=== PATIENT | female | born 1975 | race Caucasian/White ===

== ENCOUNTER 2017-01-04 17:59 | Emergency (ER) | payer OTHER ==
[~2017-01-04] VITALS: Ht 162.5 cm; Wt 83.9 kg
[~2017-01-04 17:59] MED LIST: ANAPROX DS550 MG PO; MIDRIN (DURADR1 CAP PO; PHENERGAN25 MG RC; PROZAC10 MG PO; ZOLOFT100 MG PO
[2017-01-04 18:15] VITALS: BP 122/76
[2017-01-04] MEDS ORDERED: CYCLOBENZAPRINE5 M3 PO (22:55)
[2017-01-04] MEDS ORDERED: NORCO 5-325 TA1 EACH PO (22:55)
[2017-01-04] MEDS ORDERED: MEDROL DOSEPAK4 MG PO (22:55)
== END 2017-01-04 23:39 | disposition home or self-care (01) ==
LOC: ED 17:59
DX: M54.16 Radiculopathy, lumbar region (principal); F17.200 Nicotine dependence, unspecified, uncomplicated; Z98.51 Tubal ligation status; Z98.890 Other specified postprocedural states; Z79.899 Other long term (current) drug therapy

== ENCOUNTER 2017-02-06 14:00 | Emergency (ER) | payer OTHER ==
[~2017-02-06] VITALS: Ht 162.5 cm; Wt 81.6 kg
[~2017-02-06 14:00] MED LIST changes: -CYCLOBENZAPRINE10 MG PO; -NAPROSYN500 MG PO
[2017-02-06 14:56] VITALS: BP 123/92
[2017-02-06] MEDS ORDERED: CYCLOBENZAPRINE10 MG PO (16:11)
[2017-02-06] MEDS ORDERED: NAPROSYN500 MG PO (16:11)
== END 2017-02-06 16:21 | disposition home or self-care (01) ==
LOC: ED 14:00
DX: M54.16 Radiculopathy, lumbar region (principal); F17.200 Nicotine dependence, unspecified, uncomplicated; Z98.51 Tubal ligation status; Z98.890 Other specified postprocedural states; Z79.899 Other long term (current) drug therapy

== ENCOUNTER → 2017-02-06 | Outpatient (CLI) | payer OTHER ==
[~2017-02-06] MED LIST changes: +CYCLOBENZAPRINE10 MG PO; +CYCLOBENZAPRINE5 M3 PO; +MEDROL DOSEPAK4 MG PO; +NAPROSYN500 MG PO; +NORCO 5-325 TA1 EACH PO
[2017-02-06 14:32] LABS: HEMATOCRIT 44.3 % (37.0-47.0); HEMOGLOBIN 15.1 g/dl (12.0-16.0); MEAN CELL VOLUME 93.9 fl (81.0-99.0); MEAN CORPUSCULAR HGB CONC 34.1 g/dl (33.0-37.0); MEAN PLATELET VOLUME 9.5 fl (9.6-12.3); RED BLOOD COUNT 4.72 10*6/uL (4.10-5.10); RED CELL DISTRI WIDTH 12.6 % (0-14.5); WHITE BLOOD COUNT 8.8 10*3/uL (4.8-10.8)
[2017-02-06 14:45] LABS: ALBUMIN 3.5 gm/dl (3.1-4.5); ALKALINE PHOSPHATASE 70 U/L (45-117); BUN 8 mg/dl (7-24); CHLORIDE 104 mmol/L (98-107); CHOLESTEROL 265 mg/dL (<200); CREATININE 0.86 mg/dL (0.55-1.02); HDL CHOLESTEROL 60 mg/dl (40-60); LDL CHOLESTEROL 175 mg/dL (9-159); POTASSIUM 3.2 mmol/L (3.5-5.1); SGOT/AST 11 IU/L (3-35); SGPT/ALT 20 U/L (12-78); SODIUM 140 mmol/L (136-145); TOTAL PROTEIN 7.2 gm/dL (6.4-8.2); TRIGLYCERIDES 150 mg/dl (<150); VLDL CHOLESTEROL 30 mg/dL (6-40)
== END | disposition home or self-care (01) ==
LOC: LAB 12:57
PROVIDERS: Family Medicine
DX: M47.896 Other spondylosis, lumbar region (principal); E78.00 Pure hypercholesterolemia, unspecified; F41.1 Generalized anxiety disorder; E74.00 Glycogen storage disease, unspecified; M47.892 Other spondylosis, cervical region

== ENCOUNTER → 2017-07-25 | Outpatient (CLI) | payer OTHER ==
[~2017-07-25] MED LIST changes: +CYCLOBENZAPRINE10 MG PO; +NAPROSYN500 MG PO
[2017-07-25 11:25] LABS: HEMATOCRIT 42.9 % (37.0-47.0); HEMOGLOBIN 14.6 g/dl (12.0-16.0); MEAN CELL VOLUME 95.1 fl (81.0-99.0); MEAN CORPUSCULAR HGB 32.4 pg (27.0-31.0); MEAN PLATELET VOLUME 9.6 fl (9.6-12.3); RED BLOOD COUNT 4.51 10*6/uL (4.10-5.10); RED CELL DISTRI WIDTH 12.3 % (0-14.5); WHITE BLOOD COUNT 7.6 10*3/uL (4.8-10.8)
[2017-07-25 11:56] LABS: ALBUMIN 3.6 gm/dl (3.1-4.5); ALKALINE PHOSPHATASE 71 U/L (45-117); BUN 12 mg/dl (7-24); CHLORIDE 105 mmol/L (98-107); CHOLESTEROL 210 mg/dL (<200); CREATININE 0.75 mg/dL (0.55-1.02); HDL CHOLESTEROL 46 mg/dl (40-60); LDL CHOLESTEROL 134 mg/dL (9-159); POTASSIUM 4.4 mmol/L (3.5-5.1); SGOT/AST 31 IU/L (3-35); SGPT/ALT 38 U/L (12-78); SODIUM 138 mmol/L (136-145); TOTAL PROTEIN 7.1 gm/dL (6.4-8.2); TRIGLYCERIDES 151 mg/dl (<150); VLDL CHOLESTEROL 30 mg/dL (6-40)
== END | disposition home or self-care (01) ==
LOC: LAB 09:40
PROVIDERS: Family Medicine
DX: M47.896 Other spondylosis, lumbar region (principal); F41.1 Generalized anxiety disorder; E74.09 Other glycogen storage disease; R53.83 Other fatigue; E78.00 Pure hypercholesterolemia, unspecified; E55.9 Vitamin D deficiency, unspecified

== ENCOUNTER 2017-10-09 10:45 | Emergency (ER) | payer OTHER ==
[~2017-10-09] VITALS: Ht 162.5 cm; Wt 79.4 kg
[2017-10-09 10:45] VITALS: BP 115/75
[2017-10-09] MEDS ORDERED: CYCLOBENZAPRINE10 MG PO (12:10)
[2017-10-09] MEDS ORDERED: NAPROSYN500 MG PO (12:10)
== END 2017-10-09 12:20 | disposition home or self-care (01) ==
LOC: ED 10:45
DX: S39.012A Strain of muscle, fascia and tendon of lower back, initial encounter (principal); S30.0XXA Contusion of lower back and pelvis, initial encounter; F17.200 Nicotine dependence, unspecified, uncomplicated; Z79.899 Other long term (current) drug therapy; W18.30XA Fall on same level, unspecified, initial encounter; Y93.89 Activity, other specified; Y92.89 Other specified places as the place of occurrence of the external cause; Y99.8 Other external cause status

== ENCOUNTER 2019-01-29 17:44 | Emergency (ER) | payer OTHER ==
[~2019-01-29] VITALS: Ht 162.5 cm; Wt 81.6 kg
[2019-01-29 17:45] VITALS: BP 159/92
[2019-01-29 18:59] LABS: BASO % 0.3 % (0.0-1.0); EOS # 0.1 10*3/uL (0.0-0.4); EOS % 1.5 % (1.0-4.0); HEMATOCRIT 44.9 % (37.0-47.0); HEMOGLOBIN 15.3 g/dl (12.0-16.0); LYMPH # 1.7 10*3/uL (1.3-4.4); LYMPH % 18.7 % (27.0-41.0); MEAN CELL VOLUME 95.7 fl (81.0-99.0); MEAN CORPUSCULAR HGB 32.6 pg (27.0-31.0); MEAN CORPUSCULAR HGB CONC 34.1 g/dl (33.0-37.0); MEAN PLATELET VOLUME 9.3 fl (9.6-12.3); MONO # 0.7 10*3/uL (0.1-1.0); MONO % 7.9 % (3.0-9.0); NEUT # 6.5 10*3/uL (2.3-7.9); NEUT % 71.3 % (47.0-73.0); PLATELET COUNT AUTOMATED 306 10*3/uL (130-400); RED BLOOD COUNT 4.69 10*6/uL (4.10-5.10); RED CELL DISTRI WIDTH 12.3 % (0-14.5); WHITE BLOOD COUNT 9.1 10*3/uL (4.8-10.8)
[2019-01-29 19:09] LABS: BILIRUBIN 1+ (NEGATIVE); BLOOD NEGATIVE (NEGATIVE); CLARITY CLEAR (CLEAR); COLOR YELLOW (YELLOW); GLUCOSE NEGATIVE (NEGATIVE); KETONE 3+ (NEGATIVE); LEUKO ESTERASE NEGATIVE (NEGATIVE); NITRITE NEGATIVE (NEGATIVE); SPECIFIC GRAVITY <= 1.005 (1.005-1.030); UROBILINOGEN 0.2 E.U./dl (0.2-1.0)
[2019-01-29 19:17] LABS: ALBUMIN 3.3 gm/dl (3.1-4.5); ALKALINE PHOSPHATASE 64 U/L (45-117); BUN 6 mg/dl (7-24); CHLORIDE 100 mmol/L (98-107); CREATININE 0.68 mg/dL (0.55-1.02); LIPASE 92 U/L (73-393); POTASSIUM 3.4 mmol/L (3.5-5.1); SGOT/AST 9 IU/L (3-35); SGPT/ALT 12 U/L (12-78); SODIUM 135 mmol/L (136-145); TOTAL PROTEIN 6.8 gm/dL (6.4-8.2)
[2019-01-29 19:23] LABS: BACTERIA TRACE
[2019-01-29] MEDS ORDERED: AUGMENTIN 875875 MG PO (20:06)
[2019-01-29] MEDS ORDERED: DICYCLOMINE HYD20 MG PO (20:06)
== END 2019-01-29 20:30 | disposition home or self-care (01) ==
LOC: ED 17:44
PROVIDERS: Physician Assistant
DX: R19.7 Diarrhea, unspecified (principal); R10.13 Epigastric pain; R11.10 Vomiting, unspecified; K21.9 Gastro-esophageal reflux disease without esophagitis; F17.200 Nicotine dependence, unspecified, uncomplicated; Z79.899 Other long term (current) drug therapy

== ENCOUNTER 2019-02-18 19:56 | Inpatient (IN) | payer OTHER ==
[~2019-02-18] VITALS: Ht 162.6 cm; Wt 95.7 kg
[2019-02-18 19:56] VITALS: BP 132/98
[~2019-02-18 19:56] MED LIST changes: +AUGMENTIN 875875 MG PO; +DICYCLOMINE HYD20 MG PO
[2019-02-18 20:57] LABS: HEMOGLOBIN 15.2 g/dl (12.0-16.0); MEAN CORPUSCULAR HGB 32.1 pg (27.0-31.0); MEAN CORPUSCULAR HGB CONC 34.5 g/dl (33.0-37.0); MEAN PLATELET VOLUME 8.8 fl (9.6-12.3); PLATELET COUNT AUTOMATED 318 10*3/uL (130-400); RED BLOOD COUNT 4.73 10*6/uL (4.10-5.10); RED CELL DISTRI WIDTH 11.9 % (0-14.5); WHITE BLOOD COUNT 10.3 10*3/uL (4.8-10.8)
[2019-02-18 21:10] LABS: ALKALINE PHOSPHATASE 80 U/L (45-117); BUN 4 mg/dl (7-24); CHLORIDE 91 mmol/L (98-107); CREATININE 0.74 mg/dL (0.55-1.02); POTASSIUM 3.6 mmol/L (3.5-5.1); SGOT/AST 16 IU/L (3-35); SGPT/ALT 24 U/L (12-78); SODIUM 125 mmol/L (136-145); TOTAL PROTEIN 7.8 gm/dL (6.4-8.2)
[2019-02-18 21:17] LABS: TOTAL CELLS COUNTED 100 #CELLS; VACUOLATION OF NEUTROPHILS SLIGHT
[2019-02-18 21:18] LABS: PLATELET SUFFICIENCY NORMAL (NORMAL)
[2019-02-18 21:19] LABS: BILIRUBIN NEGATIVE (NEGATIVE); BLOOD 1+ (NEGATIVE); CLARITY CLEAR (CLEAR); COLOR YELLOW (YELLOW); GLUCOSE NEGATIVE (NEGATIVE); KETONE NEGATIVE (NEGATIVE); LEUKO ESTERASE NEGATIVE (NEGATIVE); NITRITE NEGATIVE (NEGATIVE); SPECIFIC GRAVITY <= 1.005 (1.005-1.030); UROBILINOGEN 0.2 E.U./dl (0.2-1.0)
[2019-02-18 21:36] LABS: WBC 0-2 wbc/hpf (0-5)
[2019-02-18 21:37] LABS: BACTERIA 1+
--- NOTE | 2019-02-18 23:38 | NUR ---
CRITICAL LAB LACTIC ACID 2.5.
[2019-02-19 01:00] VITALS: BP 140/76
--- NOTE | 2019-02-19 01:00 | NUR ---
Time: 99 A 43 year old FEMALE admitted to 4E under services of DR. SUBHASH CUBA,RODOLFO. Pt. arrived via wheel chair from ER. Chief complaint: HYPONATREMIA. STEPHANIE DE JESUS
[2019-02-19 01:17] VITALS: BP 140/76
[2019-02-19] MEDS ORDERED: PAROXETINE HCL40 MG PO (01:33)
[2019-02-19] MEDS ORDERED: RISPERIDONE2 M2 PO (01:33)
--- NOTE | 2019-02-19 01:34 | NUR ---
ADMISSION ORDERS GIVEN FROM DT. CULLEN. PLEASE SEE ORDER HX.
[2019-02-19 07:12] LABS: BUN 6 mg/dl (7-24); CHLORIDE 102 mmol/L (98-107); CREATININE 0.66 mg/dL (0.55-1.02); POTASSIUM 3.6 mmol/L (3.5-5.1); SODIUM 134 mmol/L (136-145)
[2019-02-19] MEDS ORDERED: XANAX1 MG PO (07:38)
[2019-02-19] MEDS ORDERED: AMBIEN10 M1 PO (07:38)
[2019-02-19 08:00] VITALS: BP 126/65
[2019-02-19] MEDS ORDERED: CEFUROXIME AXE250 MG PO (08:38)
--- NOTE | 2019-02-19 09:12 | NUR ---
NIKKY PARKER NOTIFIED OF CONSULT.
--- NOTE | 2019-02-19 09:24 | NUR ---
PATIENT C/O FEELING "JITTERY/ANXIOUS". MEDICATED WITH XANAX PER PRN ORDER. WILL CONTINUE TO MONITOR.
--- NOTE | 2019-02-19 11:10 | NUR ---
met with client per consult of dr campos, this client is already being treated for her anxiety at [facility], she said she feelsl better now, i asked her about the alcohol abuse and if she wanted some treatment options for that and she declined said she has learned her lesson, discussde with her nurse, client has no needs at this time, she can go home.
--- NOTE | 2019-02-19 11:28 | NUR ---
PATIENT DISCHARGED TO HOME. ALL PERSONAL BELONGINGS SENT WITH PATIENT. IV DISCONTINUED. DISCHARGE INSTRUCTIONS GIVEN AND REVIEWED WITH PATIENT. PATIENT INFORMED TO FOLLOW UP WITH WITHIN ONE WEEK.
== END 2019-02-19 11:28 | disposition home or self-care (01) | DRG 812 ==
LOC: ED 19:56 → EDHOLD 23:49 → 4E 02-19 00:19
PROVIDERS: Emergency Medicine; ADMIT Internal Medicine
DX: T42.6X1A Poisoning by other antiepileptic and sedative-hypnotic drugs, accidental (unintentional), initial encounter (principal); E87.1 Hypo-osmolality and hyponatremia; F10.10 Alcohol abuse, uncomplicated; F41.1 Generalized anxiety disorder; F43.10 Post-traumatic stress disorder, unspecified; N39.0 Urinary tract infection, site not specified; F17.210 Nicotine dependence, cigarettes, uncomplicated; E87.2 Acidosis; Y92.89 Other specified places as the place of occurrence of the external cause; Z98.51 Tubal ligation status; Z82.49 Family history of ischemic heart disease and other diseases of the circulatory system; Z80.8 Family history of malignant neoplasm of other organs or systems; Z79.899 Other long term (current) drug therapy

== ENCOUNTER → 2019-03-01 | Day surgery (SDC) | payer OTHER ==
[~2019-03-01] VITALS: Ht 162.5 cm; Wt 90.7 kg
[~2019-03-01] MED LIST changes: +AMBIEN10 M1 PO; +CEFUROXIME AXE250 MG PO; +PAROXETINE HCL40 MG PO; +RISPERIDONE2 M2 PO; +XANAX1 MG PO
[2019-03-01 13:50] VITALS: BP 127/88
[2019-03-01 15:14] VITALS: BP 117/77
[2019-03-01 15:29] VITALS: BP 120/67
[2019-03-01 15:38] VITALS: BP 120/72
== END | disposition home or self-care (01) ==
LOC: SDC 02-25 11:45
DX: D12.5 Benign neoplasm of sigmoid colon (principal); F41.9 Anxiety disorder, unspecified; F32.9 Major depressive disorder, single episode, unspecified; F17.210 Nicotine dependence, cigarettes, uncomplicated; E66.9 Obesity, unspecified; Z68.34 Body mass index [BMI] 34.0-34.9, adult; Z98.51 Tubal ligation status; Z98.890 Other specified postprocedural states; Z79.899 Other long term (current) drug therapy; Z82.49 Family history of ischemic heart disease and other diseases of the circulatory system; Z80.8 Family history of malignant neoplasm of other organs or systems

== ENCOUNTER 2019-08-25 15:55 | Emergency (ER) | payer OTHER ==
[2019-08-25 16:52] LABS: BASO % 0.4 % (0.0-1.0); EOS % 0.3 % (1.0-4.0); HEMATOCRIT 46.9 % (37.0-47.0); HEMOGLOBIN 16.2 g/dl (12.0-16.0); LYMPH # 1.3 10*3/uL (1.3-4.4); LYMPH % 16.5 % (27.0-41.0); MEAN CELL VOLUME 90.2 fl (81.0-99.0); MEAN CORPUSCULAR HGB 31.2 pg (27.0-31.0); MEAN CORPUSCULAR HGB CONC 34.5 g/dl (33.0-37.0); MEAN PLATELET VOLUME 8.9 fl (9.6-12.3); MONO # 0.4 10*3/uL (0.1-1.0); MONO % 4.4 % (3.0-9.0); NEUT # 6.2 10*3/uL (2.3-7.9); NEUT % 78.3 % (47.0-73.0); PLATELET COUNT AUTOMATED 319 10*3/uL (130-400); RED CELL DISTRI WIDTH 11.6 % (0-14.5)
[2019-08-25 17:23] LABS: ALBUMIN 3.7 gm/dl (3.1-4.5); ALKALINE PHOSPHATASE 87 U/L (45-117); BUN 8 mg/dl (7-24); CHLORIDE 105 mmol/L (98-107); CREATININE 0.81 mg/dL (0.55-1.02); POTASSIUM 3.7 mmol/L (3.5-5.1); SGOT/AST 15 IU/L (3-35); SGPT/ALT 29 U/L (12-78); SODIUM 135 mmol/L (136-145); TOTAL PROTEIN 7.6 gm/dL (6.4-8.2)
[2019-08-25 17:29] LABS: TROPONIN I < 0.015 ng/ml (<0.045)
[2019-08-25 17:53] VITALS: BP 136/80
[2019-08-25] MEDS ORDERED: MECLIZINE HCL25 M2 PO (19:15)
== END 2019-08-25 19:30 | disposition home or self-care (01) ==
LOC: ED 15:55
PROVIDERS: Nurse Practitioner Family
DX: R42 Dizziness and giddiness (principal); F41.9 Anxiety disorder, unspecified; R51 Headache; R07.89 Other chest pain; F17.200 Nicotine dependence, unspecified, uncomplicated; Z79.899 Other long term (current) drug therapy

== ENCOUNTER 2019-10-21 10:32 | Emergency (ER) | payer OTHER ==
[~2019-10-21] VITALS: Ht 162.5 cm; Wt 90.7 kg
[~2019-10-21 10:32] MED LIST changes: +MECLIZINE HCL25 M2 PO
[2019-10-21 10:38] VITALS: BP 119/72
[2019-10-21] MEDS ORDERED: NAPROSYN500 MG PO (13:18)
[2019-10-21] MEDS ORDERED: MEDROL DOSEPAK4 MG PO (13:18)
[2019-10-21] MEDS ORDERED: METHOCARBAMOL500 M1 PO (13:18)
== END 2019-10-21 13:19 | disposition home or self-care (01) ==
LOC: ED 10:32
DX: S16.1XXA Strain of muscle, fascia and tendon at neck level, initial encounter (principal); F41.9 Anxiety disorder, unspecified; Z79.899 Other long term (current) drug therapy; X58.XXXA Exposure to other specified factors, initial encounter; Y93.89 Activity, other specified; Y92.89 Other specified places as the place of occurrence of the external cause; Y99.8 Other external cause status

== ENCOUNTER → 2019-11-26 | Outpatient (CLI) | payer OTHER ==
[~2019-11-26] MED LIST changes: +METHOCARBAMOL500 M1 PO
== END | disposition home or self-care (01) ==
LOC: MAMMO 12:55
DX: N64.52 Nipple discharge (principal)

== ENCOUNTER → 2019-12-06 | Outpatient (CLI) | payer OTHER | END | disposition home or self-care (01) | LOC: MRI 13:00 | DX: N64.52 Nipple discharge (principal); R79.89 Other specified abnormal findings of blood chemistry ==

== ENCOUNTER → 2020-02-26 | Outpatient (CLI) | payer OTHER | END | disposition home or self-care (01) | LOC: LAB 08:00 | PROVIDERS: ATTEND Internal Medicine Endocrinology, Diabetes & Metabolism | DX: D35.2 Benign neoplasm of pituitary gland (principal) ==

== ENCOUNTER → 2020-02-27 | Outpatient (CLI) | payer OTHER | END | disposition home or self-care (01) | LOC: LAB 08:00 | PROVIDERS: ATTEND Internal Medicine Endocrinology, Diabetes & Metabolism | DX: D35.2 Benign neoplasm of pituitary gland (principal) ==

== ENCOUNTER → 2020-02-28 | Outpatient (CLI) | payer OTHER ==
[2020-02-28 11:39] LABS: ALBUMIN 3.6 gm/dl (3.1-4.5); BUN 9 mg/dl (7-24); CHLORIDE 103 mmol/L (98-107); CHOLESTEROL 220 mg/dL (<200); CREATININE 0.77 mg/dL (0.55-1.02); POTASSIUM 4.1 mmol/L (3.5-5.1); SGOT/AST 9 IU/L (3-35); SGPT/ALT 18 U/L (12-78); SODIUM 135 mmol/L (136-145); T3 UPTAKE 36 % (31-39); THYROXINE (T4) TOTAL 6.4 ug/dl (4.8-13.9); TOTAL PROTEIN 7.2 gm/dL (6.4-8.2); TRIGLYCERIDES 102 mg/dl (<150); VLDL CHOLESTEROL 20 mg/dL (6-40)
[2020-02-28 11:45] LABS: ALKALINE PHOSPHATASE 82 U/L (45-117); FREE T4 0.88 ng/dl (0.76-1.46); HDL CHOLESTEROL 57 mg/dl (40-60); LDL CHOLESTEROL 143 mg/dL (9-159); THYROID STIM HORMONE (HS) 0.766 uIU/ml (0.358-4.75)
[2020-02-29 08:11] LABS: LUTEINIZING HORMONE 30.3 mIU/mL (.); PROLACTIN 24.5 ng/mL (4.8-23.3)
[2020-03-01 22:05] LABS: HUMAN GROWTH HORMONE 0.2 ng/mL (0.0-10.0)
== END | disposition home or self-care (01) ==
LOC: LAB 10:33
PROVIDERS: ATTEND Internal Medicine Endocrinology, Diabetes & Metabolism
DX: D35.2 Benign neoplasm of pituitary gland (principal)

== ENCOUNTER 2020-03-11 14:24 | Emergency (ER) | payer OTHER ==
[~2020-03-11] VITALS: Ht 162.5 cm; Wt 90.7 kg
[2020-03-11 14:29] VITALS: BP 141/90
[2020-03-11 15:06] LABS: BILIRUBIN Negative (Negative); BLOOD 2+ (Negative); CLARITY Cloudy (Clear); COLOR Yellow (Yellow); GLUCOSE Negative (Negative); KETONE Negative (Negative); LEUKO ESTERASE Trace (Negative); NITRITE Negative (Negative); SPECIFIC GRAVITY <= 1.005 (1.001-1.030); UROBILINOGEN 0.2 E.U./dl (0.0-1.0)
[2020-03-11 15:23] LABS: BACTERIA TRACE; RBC 0-2 rbc/hpf (0-2); WBC 0-2 wbc/hpf (0-5)
[2020-03-11] MEDS ORDERED: ROBAXIN-750750 MG PO ×2 (17:26)
[2020-03-11] MEDS ORDERED: PREDNISONE20 M1 PO ×2 (17:26)
[2020-03-19] MEDS ORDERED: WELLBUTRIN SR100 MG PO (13:45)
[2020-03-24] MEDS ORDERED: Motrin,Rufen800 MG PO (08:42)
== END 2020-03-11 17:32 | disposition home or self-care (01) ==
LOC: ED 14:24
PROVIDERS: Physician Assistant
DX: M54.41 Lumbago with sciatica, right side (principal); Z79.899 Other long term (current) drug therapy

== ENCOUNTER → 2020-03-19 | Outpatient (CLI) | payer OTHER ==
[~2020-03-19] MED LIST changes: +Motrin,Rufen800 MG PO; +PREDNISONE20 M1 PO; +ROBAXIN-750750 MG PO; +WELLBUTRIN SR100 MG PO
== END | disposition home or self-care (01) ==
LOC: COVID19 00:19 → LAB 00:19 → COVID19 13:30
PROVIDERS: ATTEND Obstetrics & Gynecology
DX: Z01.812 Encounter for preprocedural laboratory examination (principal); Z20.828 Contact with and (suspected) exposure to other viral communicable diseases

== ENCOUNTER → 2020-03-24 | Day surgery (SDC) | payer OTHER ==
[2020-03-19 13:39] VITALS: BP 148/78
[~2020-03-24] VITALS: Ht 162.5 cm; Wt 90.7 kg
[2020-03-24 06:45] VITALS: BP 133/74
[2020-03-24 08:26] VITALS: BP 113/73
[2020-03-24 08:41] VITALS: BP 121/79
[2020-03-24 08:56] VITALS: BP 118/72
== END ==
LOC: SDC 03-19 14:00
PROVIDERS: ATTEND Obstetrics & Gynecology
DX: N93.9 Abnormal uterine and vaginal bleeding, unspecified (principal); R10.2 Pelvic and perineal pain; G89.29 Other chronic pain; N88.2 Stricture and stenosis of cervix uteri; F31.9 Bipolar disorder, unspecified; F43.10 Post-traumatic stress disorder, unspecified; E78.00 Pure hypercholesterolemia, unspecified; F41.9 Anxiety disorder, unspecified; F17.210 Nicotine dependence, cigarettes, uncomplicated; Z79.899 Other long term (current) drug therapy

== ENCOUNTER 2020-08-27 12:15 | Observation (INO) | payer OTHER ==
[~2020-08-27] VITALS: Ht 162.5 cm; Wt 105.7 kg
[2020-08-27 12:25] VITALS: BP 124/82
[2020-08-27 12:59] VITALS: BP 132/75
[2020-08-27 13:15] LABS: BASO % 0.5 % (0.0-1.0); EOS # 0.1 10*3/uL (0.0-0.4); HEMATOCRIT 43.5 % (37.0-47.0); LYMPH % 24.6 % (27.0-41.0); MEAN CELL VOLUME 91.2 fl (81.0-99.0); MEAN CORPUSCULAR HGB 30.8 pg (27.0-31.0); MEAN CORPUSCULAR HGB CONC 33.8 g/dl (33.0-37.0); MEAN PLATELET VOLUME 8.8 fl (9.6-12.3); MONO # 0.4 10*3/uL (0.1-1.0); MONO % 5.1 % (3.0-9.0); NEUT # 5.6 10*3/uL (2.3-7.9); NEUT % 68.3 % (47.0-73.0); PLATELET COUNT AUTOMATED 380 10*3/uL (130-400); RED BLOOD COUNT 4.77 10*6/uL (4.10-5.10); RED CELL DISTRI WIDTH 13.3 % (0-14.5); WHITE BLOOD COUNT 8.2 10*3/uL (4.8-10.8)
[2020-08-27 13:26] LABS: ACT PARTIAL THROMBO TIME 25.9 SECONDS (20.0-32.1); INTERNATIONAL NORM RATIO 0.9 (2.0-3.5)
[2020-08-27 13:31] LABS: ALBUMIN 3.3 gm/dl (3.1-4.5); ALKALINE PHOSPHATASE 109 U/L (45-117); BUN 8 mg/dl (7-24); CHLORIDE 103 mmol/L (98-107); CREATININE 0.75 mg/dL (0.55-1.02); LIPASE 168 U/L (73-393); POTASSIUM 3.8 mmol/L (3.5-5.1); SGOT/AST 12 IU/L (3-35); SGPT/ALT 28 U/L (12-78); SODIUM 137 mmol/L (136-145); TOTAL PROTEIN 7.1 gm/dL (6.4-8.2); TROPONIN I < 0.015 ng/ml (<0.045)
[2020-08-27 13:33] LABS: BETA-HCG, QUANT < 1.0 mIU/mL (1-3)
[2020-08-27 17:00] VITALS: BP 122/74
[2020-08-27] MEDS ORDERED: PAXIL40 M1 PO (17:22)
[2020-08-27] MEDS ORDERED: VRAYLAR1.5 MG PO (17:22)
[2020-08-27] MEDS ORDERED: KLONOPIN0.5 MG PO (17:23)
[2020-08-27 20:00] VITALS: BP 120/64
[2020-08-28] VITALS: BP 110/56
[2020-08-28 08:00] VITALS: BP 106/56
== END 2020-08-28 15:59 | disposition home or self-care (01) ==
LOC: ED 12:15 → 4E 14:56 → EDHOLD 14:56 → 4E 16:06
PROVIDERS: Emergency Medicine; ADMIT Internal Medicine; ATTEND Internal Medicine
DX: R07.89 Other chest pain (principal); F41.1 Generalized anxiety disorder; F32.9 Major depressive disorder, single episode, unspecified; I25.10 Atherosclerotic heart disease of native coronary artery without angina pectoris; M19.90 Unspecified osteoarthritis, unspecified site; E66.01 Morbid (severe) obesity due to excess calories; Z68.41 Body mass index [BMI] 40.0-44.9, adult

== ENCOUNTER → 2020-10-05 | Outpatient (CLI) | payer OTHER ==
[~2020-10-05] MED LIST changes: +KLONOPIN0.5 MG PO; +PAXIL40 M1 PO; +VRAYLAR1.5 MG PO
[2020-10-05 12:19] LABS: MEAN CELL VOLUME 91.9 fl (81.0-99.0); MEAN CORPUSCULAR HGB 30.6 pg (27.0-31.0); MEAN CORPUSCULAR HGB CONC 33.3 g/dl (33.0-37.0); MEAN PLATELET VOLUME 8.7 fl (9.6-12.3); RED BLOOD COUNT 4.57 10*6/uL (4.10-5.10); RED CELL DISTRI WIDTH 12.9 % (0-14.5); WHITE BLOOD COUNT 6.7 10*3/uL (4.8-10.8)
[2020-10-05 13:00] LABS: ALBUMIN 3.1 gm/dl (3.1-4.5); BUN 8 mg/dl (7-24); CHLORIDE 107 mmol/L (98-107); POTASSIUM 3.9 mmol/L (3.5-5.1); SGOT/AST 16 IU/L (3-35); SGPT/ALT 26 U/L (12-78); SODIUM 138 mmol/L (136-145); TOTAL PROTEIN 7.1 gm/dL (6.4-8.2)
[2020-10-05 13:09] LABS: ALKALINE PHOSPHATASE 97 U/L (45-117); THYROID STIM HORMONE (HS) 0.556 uIU/ml (0.358-4.75)
[2020-10-06 04:06] LABS: PROLACTIN 12.6 ng/mL (4.8-23.3)
[2020-10-08 11:07] LABS: TESTOSTERONE FREE, (DIRECT) 1.6 pg/mL (0.0-4.2)
== END | disposition home or self-care (01) ==
LOC: LAB 11:56
PROVIDERS: ATTEND Family Medicine
DX: G62.9 Polyneuropathy, unspecified (principal); E66.9 Obesity, unspecified; M19.90 Unspecified osteoarthritis, unspecified site; F41.1 Generalized anxiety disorder; E74.00 Glycogen storage disease, unspecified

== ENCOUNTER → 2020-10-07 | Outpatient (CLI) | payer OTHER | END | disposition home or self-care (01) | LOC: MRI 09-30 09:00 | PROVIDERS: ATTEND Internal Medicine Endocrinology, Diabetes & Metabolism | DX: D35.2 Benign neoplasm of pituitary gland (principal) ==

== ENCOUNTER → 2020-12-28 | Outpatient (CLI) | payer OTHER ==
[2020-12-28 14:03] LABS: HEMATOCRIT 44.6 % (37.0-47.0); MEAN CORPUSCULAR HGB 30.8 pg (27.0-31.0); MEAN CORPUSCULAR HGB CONC 33.9 g/dl (33.0-37.0); MEAN PLATELET VOLUME 9.1 fl (9.6-12.3); RED BLOOD COUNT 4.9 10*6/uL (4.10-5.10); RED CELL DISTRI WIDTH 12.2 % (0-14.5); WHITE BLOOD COUNT 6.9 10*3/uL (4.8-10.8)
[2020-12-28 14:12] LABS: ALBUMIN 3.9 gm/dl (3.1-4.5); ALKALINE PHOSPHATASE 97 U/L (45-117); BUN 8 mg/dl (7-24); CHLORIDE 104 mmol/L (98-107); CHOLESTEROL 230 mg/dL (<200); CREATININE 0.66 mg/dL (0.55-1.02); LDL CHOLESTEROL 153 mg/dL (9-159); POTASSIUM 4.1 mmol/L (3.5-5.1); SGOT/AST 15 IU/L (3-35); SGPT/ALT 42 U/L (12-78); SODIUM 135 mmol/L (136-145); TOTAL PROTEIN 7.5 gm/dL (6.4-8.2); TRIGLYCERIDES 142 mg/dl (<150)
[2020-12-28 16:08] LABS: VITAMIN D, 25-HYDROXY 29.7 ng/mL (30-100)
== END | disposition home or self-care (01) ==
LOC: LAB 13:30
PROVIDERS: ATTEND Family Medicine
DX: E78.5 Hyperlipidemia, unspecified (principal); E78.00 Pure hypercholesterolemia, unspecified; E55.9 Vitamin D deficiency, unspecified; R51.9 Headache, unspecified; E23.6 Other disorders of pituitary gland; G62.9 Polyneuropathy, unspecified

== ENCOUNTER 2021-01-29 21:10 | Emergency (ER) | payer OTHER ==
[2021-01-29 21:35] LABS: BILIRUBIN Negative (Negative); BLOOD Negative (Negative); CLARITY Clear (Clear); COLOR Yellow (Yellow); GLUCOSE Negative (Negative); KETONE Negative (Negative); LEUKO ESTERASE Negative (Negative); NITRITE Negative (Negative); SPECIFIC GRAVITY <= 1.005 (1.001-1.030); UROBILINOGEN 0.2 E.U./dl (0.0-1.0)
[2021-01-29 21:45] LABS: BACTERIA TRACE; RBC 0-2 rbc/hpf (0-2); URINE AMPHETAMINES < 1000 (1000ng/ml); URINE BARBITURATES < 200 (200ng/ml); URINE BENZODIAZEPINES < 200 (200ng/ml); URINE CANNABINOIDS (THC) < 50 (50ng/ml); URINE COCAINE < 300 (300ng/ml); URINE METHADONE < 300 (300ng/ml); URINE OPIATES < 300 (300ng/ml); WBC 0-2 wbc/hpf (0-5)
[2021-01-29 21:48] LABS: URINE PHENCYCLIDINE < 25 (25ng/ml)
[2021-01-29 22:01] LABS: BASO % 0.5 % (0.0-1.0); EOS # 0.1 10*3/uL (0.0-0.4); EOS % 1.6 % (1.0-4.0); HEMATOCRIT 43.2 % (37.0-47.0); LYMPH # 1.8 10*3/uL (1.3-4.4); LYMPH % 32.1 % (27.0-41.0); MEAN CELL VOLUME 90.2 fl (81.0-99.0); MEAN CORPUSCULAR HGB 29.9 pg (27.0-31.0); MEAN CORPUSCULAR HGB CONC 33.1 g/dl (33.0-37.0); MEAN PLATELET VOLUME 8.8 fl (9.6-12.3); MONO # 0.3 10*3/uL (0.1-1.0); MONO % 5.9 % (3.0-9.0); NEUT # 3.2 10*3/uL (2.3-7.9); NEUT % 58.3 % (47.0-73.0); PLATELET COUNT AUTOMATED 362 10*3/uL (130-400); RED BLOOD COUNT 4.79 10*6/uL (4.10-5.10); RED CELL DISTRI WIDTH 12.1 % (0-14.5); WHITE BLOOD COUNT 5.6 10*3/uL (4.8-10.8)
[2021-01-29 22:19] LABS: ALBUMIN 3.2 gm/dl (3.1-4.5); ALKALINE PHOSPHATASE 93 U/L (45-117); BUN 8 mg/dl (7-24); CHLORIDE 103 mmol/L (98-107); CREATININE 0.67 mg/dL (0.55-1.02); POTASSIUM 4.1 mmol/L (3.5-5.1); SGOT/AST 19 IU/L (3-35); SGPT/ALT 33 U/L (12-78); SODIUM 140 mmol/L (136-145)
[2021-01-29 22:27] LABS: THYROID STIM HORMONE (HS) 0.342 uIU/ml (0.358-4.75)
[2021-01-29 22:54] LABS: ACETAMINOPHEN (TYLENOL) < 5.0 ug/ml (10-30)
[2021-01-30 06:53] VITALS: BP 114/74
== END 2021-01-30 14:04 | disposition home or self-care (01) ==
LOC: ED 21:10
PROVIDERS: Emergency Medicine
DX: F10.920 Alcohol use, unspecified with intoxication, uncomplicated (principal); F43.21 Adjustment disorder with depressed mood; Z98.51 Tubal ligation status; Z98.890 Other specified postprocedural states; Y90.9 Presence of alcohol in blood, level not specified

== ENCOUNTER 2021-02-07 14:15 | Emergency (ER) | payer OTHER ==
[~2021-02-07] VITALS: Ht 162.5 cm; Wt 90.7 kg
[2021-02-07 15:42] LABS: BILIRUBIN Negative (Negative); BLOOD Negative (Negative); CLARITY Clear (Clear); COLOR Yellow (Yellow); GLUCOSE Negative (Negative); KETONE Negative (Negative); LEUKO ESTERASE Negative (Negative); NITRITE Negative (Negative); SPECIFIC GRAVITY <= 1.005 (1.001-1.030); UROBILINOGEN 0.2 E.U./dl (0.0-1.0)
[2021-02-07 15:48] LABS: BACTERIA 2+; RBC 0-2 rbc/hpf (0-2); WBC 0-2 wbc/hpf (0-5)
[2021-02-07 15:49] LABS: URINE AMPHETAMINES < 1000 (1000ng/ml); URINE BARBITURATES < 200 (200ng/ml); URINE BENZODIAZEPINES < 200 (200ng/ml); URINE CANNABINOIDS (THC) < 50 (50ng/ml); URINE COCAINE < 300 (300ng/ml); URINE METHADONE < 300 (300ng/ml); URINE OPIATES < 300 (300ng/ml)
[2021-02-07 15:50] LABS: URINE PHENCYCLIDINE < 25 (25ng/ml)
[2021-02-07 15:58] LABS: BASO % 0.5 % (0.0-1.0); EOS # 0.1 10*3/uL (0.0-0.4); EOS % 0.6 % (1.0-4.0); HEMATOCRIT 44.4 % (37.0-47.0); LYMPH % 25.4 % (27.0-41.0); MEAN CELL VOLUME 89.9 fl (81.0-99.0); MEAN CORPUSCULAR HGB 30.6 pg (27.0-31.0); MEAN PLATELET VOLUME 8.6 fl (9.6-12.3); MONO # 0.4 10*3/uL (0.1-1.0); MONO % 4.9 % (3.0-9.0); NEUT # 5.3 10*3/uL (2.3-7.9); NEUT % 68.3 % (47.0-73.0); PLATELET COUNT AUTOMATED 352 10*3/uL (130-400); RED BLOOD COUNT 4.94 10*6/uL (4.10-5.10); RED CELL DISTRI WIDTH 12.2 % (0-14.5); WHITE BLOOD COUNT 7.8 10*3/uL (4.8-10.8)
[2021-02-07 16:12] LABS: ALBUMIN 3.6 gm/dl (3.1-4.5); ALKALINE PHOSPHATASE 106 U/L (45-117); BUN 6 mg/dl (7-24); CHLORIDE 102 mmol/L (98-107); CREATININE 0.72 mg/dL (0.55-1.02); POTASSIUM 3.8 mmol/L (3.5-5.1); SGOT/AST 8 IU/L (3-35); SGPT/ALT 25 U/L (12-78); SODIUM 135 mmol/L (136-145); TOTAL PROTEIN 7.6 gm/dL (6.4-8.2)
[2021-02-07 16:13] LABS: ACETAMINOPHEN (TYLENOL) < 5.0 ug/ml (10-30)
[2021-02-08 06:05] VITALS: BP 141/82
[2021-02-18] MEDS ORDERED: COLACE100 MG PO (11:10)
[2021-02-18] MEDS ORDERED: ZOFRAN4 MG PO (11:10)
[2021-02-18] MEDS ORDERED: PERCOCET 5-3251 EACH PO (11:10)
== END 2021-02-08 13:24 ==
LOC: ED 14:15
PROVIDERS: Physician Assistant
DX: R45.851 Suicidal ideations (principal); Z20.822 Contact with and (suspected) exposure to COVID-19; F43.10 Post-traumatic stress disorder, unspecified; F41.9 Anxiety disorder, unspecified; F31.9 Bipolar disorder, unspecified; Z79.899 Other long term (current) drug therapy; Z98.890 Other specified postprocedural states

== ENCOUNTER → 2021-02-18 | Day surgery (SDC) | payer OTHER ==
[2021-02-15 14:24] VITALS: BP 125/86
[~2021-02-18] VITALS: Ht 162.5 cm; Wt 93.0 kg
[~2021-02-18] MED LIST changes: +COLACE100 MG PO; +PERCOCET 5-3251 EACH PO; +ZOFRAN4 MG PO
[2021-02-18 08:19] VITALS: BP 128/80
[2021-02-18 11:11] VITALS: BP 125/79
[2021-02-18 11:25] VITALS: BP 118/69
[2021-02-18 11:40] VITALS: BP 127/71
[2021-02-18 11:55] VITALS: BP 122/69
[2021-02-18 12:10] VITALS: BP 116/61
== END | disposition home or self-care (01) ==
LOC: SDC 02-15 13:15
PROVIDERS: ATTEND Surgery
DX: L05.01 Pilonidal cyst with abscess (principal); F41.9 Anxiety disorder, unspecified; F31.9 Bipolar disorder, unspecified; F43.10 Post-traumatic stress disorder, unspecified; Z79.899 Other long term (current) drug therapy; Z20.822 Contact with and (suspected) exposure to COVID-19; Z98.890 Other specified postprocedural states

== ENCOUNTER 2021-02-28 08:21 | Emergency (ER) | payer OTHER ==
[~2021-02-28] VITALS: Ht 162.5 cm; Wt 90.7 kg
[2021-02-28 08:38] VITALS: BP 140/95
[2021-02-28] MEDS ORDERED: SEPTDS PO (09:27)
== END 2021-02-28 09:48 | disposition home or self-care (01) ==
LOC: ED 08:21
DX: L76.34 Postprocedural seroma of skin and subcutaneous tissue following other procedure (principal)

== ENCOUNTER → 2021-04-26 | Outpatient (CLI) | payer OTHER ==
[~2021-04-26] MED LIST changes: +SEPTDS PO
== END | disposition home or self-care (01) ==
LOC: ORTHO 00:19
PROVIDERS: ATTEND Orthopaedic Surgery
DX: D17.21 Benign lipomatous neoplasm of skin and subcutaneous tissue of right arm (principal); Q85.8 Other phakomatoses, not elsewhere classified; M79.641 Pain in right hand

== ENCOUNTER → 2021-05-07 | Outpatient (CLI) | payer OTHER | END | disposition home or self-care (01) | LOC: US 05-04 14:00 | PROVIDERS: ATTEND Orthopaedic Surgery | DX: M67.841 Other specified disorders of synovium, right hand (principal); M79.641 Pain in right hand ==

== ENCOUNTER → 2021-06-22 | Day surgery (SDC) | payer OTHER ==
[2021-06-18 13:39] VITALS: BP 147/93
[2021-06-18 15:44] LABS: BUN 12 mg/dl (7-24); CHLORIDE 98 mmol/L (98-107); CREATININE 0.59 mg/dL (0.55-1.02); POTASSIUM 3.6 mmol/L (3.5-5.1); SODIUM 133 mmol/L (136-145)
[~2021-06-22] VITALS: Ht 167.6 cm; Wt 104.3 kg
[~2021-06-22] MED LIST changes: +REMERON30 M1 PO; +TRILEPTAL150 MG PO
[2021-06-22 07:00] VITALS: BP 117/77
[2021-06-22 08:00] VITALS: BP 112/64
[2021-06-22 08:15] VITALS: BP 112/60
[2021-06-22 08:31] VITALS: BP 114/70
[2021-06-22 08:35] VITALS: BP 114/64
== END | disposition home or self-care (01) ==
LOC: SDC 05-28 11:00
PROVIDERS: ATTEND Orthopaedic Surgery
DX: M65.841 Other synovitis and tenosynovitis, right hand (principal); F41.9 Anxiety disorder, unspecified; F32.9 Major depressive disorder, single episode, unspecified; Z20.822 Contact with and (suspected) exposure to COVID-19; F17.210 Nicotine dependence, cigarettes, uncomplicated; Z79.899 Other long term (current) drug therapy

== ENCOUNTER → 2021-08-16 | Outpatient (CLI) | payer OTHER ==
[2021-08-16 16:18] LABS: HEMATOCRIT 45.3 % (37.0-47.0); MEAN CELL VOLUME 90.2 fl (81.0-99.0); MEAN CORPUSCULAR HGB 31.5 pg (27.0-31.0); MEAN CORPUSCULAR HGB CONC 34.9 g/dl (33.0-37.0); RED BLOOD COUNT 5.02 10*6/uL (4.10-5.10); RED CELL DISTRI WIDTH 12.3 % (0-14.5)
[2021-08-16 16:42] LABS: BUN 7 mg/dl (7-24); CHLORIDE 107 mmol/L (98-107); CHOLESTEROL 274 mg/dL (<200); CREATININE 0.69 mg/dL (0.55-1.02); POTASSIUM 3.7 mmol/L (3.5-5.1); SGOT/AST 31 IU/L (3-35); SGPT/ALT 65 U/L (12-78); SODIUM 141 mmol/L (136-145); TOTAL PROTEIN 7.8 gm/dL (6.4-8.2); TRIGLYCERIDES 429 mg/dl (<150)
[2021-08-16 16:47] LABS: ALKALINE PHOSPHATASE 125 U/L (45-117); FREE T4 0.66 ng/dl (0.76-1.46); THYROID STIM HORMONE (HS) 0.828 uIU/ml (0.358-4.75)
[2021-08-17 08:08] LABS: RHEUMATOID FACTOR 11.3 IU/mL (<14.0)
[2021-08-17 12:05] LABS: VITAMIN D, 25-HYDROXY 21.3 ng/mL (30-100)
== END | disposition home or self-care (01) ==
LOC: LAB 15:58
PROVIDERS: ATTEND Family Medicine
DX: D48.5 Neoplasm of uncertain behavior of skin (principal); M26.629 Arthralgia of temporomandibular joint, unspecified side; M25.50 Pain in unspecified joint; M79.10 Myalgia, unspecified site; R53.83 Other fatigue

== ENCOUNTER 2021-09-08 13:49 | Emergency (ER) | payer OTHER ==
[~2021-09-08] VITALS: Wt 104.3 kg
[~2021-09-08 13:49] MED LIST changes: -AUGMENTIN 875-875 MG PO; -IBUPROFEN600 MG PO
[2021-09-08 13:53] VITALS: BP 141/84
[2021-09-08] MEDS ORDERED: IBUPROFEN600 MG PO (15:04)
[2021-09-08] MEDS ORDERED: AUGMENTIN 875-875 MG PO (15:04)
== END 2021-09-08 15:16 | disposition home or self-care (01) ==
LOC: ED 13:49
DX: L05.91 Pilonidal cyst without abscess (principal)

== ENCOUNTER → 2021-09-08 | Outpatient (CLI) | payer OTHER ==
[~2021-09-08] MED LIST changes: +AUGMENTIN 875-875 MG PO; +IBUPROFEN600 MG PO
== END | disposition home or self-care (01) ==
LOC: RAD 10:35
PROVIDERS: ATTEND Family Medicine
DX: M25.531 Pain in right wrist (principal)

== ENCOUNTER → 2021-10-06 | Outpatient (CLI) | payer OTHER ==
[~2021-10-06] MED LIST changes: +AUGMENTIN 875-875 MG PO; +IBUPROFEN600 MG PO
== END | disposition home or self-care (01) ==
LOC: MRI 10:00
PROVIDERS: ATTEND Family Medicine
DX: M25.531 Pain in right wrist (principal); L72.0 Epidermal cyst

== ENCOUNTER → 2021-11-11 | Outpatient (CLI) | payer OTHER ==
[2021-11-11 12:48] LABS: ALKALINE PHOSPHATASE 116 U/L (45-117); BUN 7 mg/dl (7-24); CHLORIDE 106 mmol/L (98-107); CHOLESTEROL 252 mg/dL (<200); CREATININE 0.74 mg/dL (0.55-1.02); POTASSIUM 4.1 mmol/L (3.5-5.1); SGOT/AST 22 IU/L (3-35); SGPT/ALT 45 U/L (12-78); SODIUM 141 mmol/L (136-145); TRIGLYCERIDES 475 mg/dl (<150)
== END | disposition home or self-care (01) ==
LOC: LAB 12:09
PROVIDERS: ATTEND Family Medicine
DX: E78.00 Pure hypercholesterolemia, unspecified (principal)

== ENCOUNTER → 2022-02-02 | Outpatient (CLI) | payer OTHER ==
[2022-02-02 12:56] LABS: HEMATOCRIT 45.6 % (37.0-47.0); MEAN CELL VOLUME 90.7 fl (81.0-99.0); MEAN CORPUSCULAR HGB 30.8 pg (27.0-31.0); MEAN PLATELET VOLUME 9.3 fl (9.6-12.3); RED BLOOD COUNT 5.03 10*6/uL (4.10-5.10); RED CELL DISTRI WIDTH 12.5 % (0-14.5); WHITE BLOOD COUNT 6.9 10*3/uL (4.8-10.8)
[2022-02-02 13:14] LABS: BUN 5 mg/dl (7-24); CHLORIDE 109 mmol/L (98-107); CHOLESTEROL 234 mg/dL (<200); CREATININE 0.77 mg/dL (0.55-1.02); POTASSIUM 4.1 mmol/L (3.5-5.1); SGOT/AST 11 IU/L (3-35); SGPT/ALT 28 U/L (12-78); SODIUM 142 mmol/L (136-145); TOTAL PROTEIN 7.4 gm/dL (6.4-8.2); TRIGLYCERIDES 180 mg/dl (<150)
[2022-02-02 13:21] LABS: ALKALINE PHOSPHATASE 97 U/L (45-117); FREE T4 0.91 ng/dl (0.76-1.46); THYROID STIM HORMONE (HS) 0.676 uIU/ml (0.358-4.75)
[2022-02-02 13:23] LABS: LDL CHOLESTEROL 143 mg/dL (9-159)
== END | disposition home or self-care (01) ==
LOC: LAB 12:01
PROVIDERS: ATTEND Family Medicine
DX: F41.1 Generalized anxiety disorder (principal); E03.9 Hypothyroidism, unspecified; E74.00 Glycogen storage disease, unspecified

== ENCOUNTER 2022-02-15 13:41 | Emergency (ER) | payer OTHER ==
[~2022-02-15] VITALS: Ht 162.5 cm; Wt 99.8 kg
[2022-02-15 13:49] VITALS: BP 135/75
[2022-02-15] MEDS ORDERED: CYCLOBENZAPRINE5 M3 PO (15:54)
== END 2022-02-15 16:04 | disposition home or self-care (01) ==
LOC: ED 13:41
DX: M54.50 Low back pain, unspecified (principal); W01.0XXA Fall on same level from slipping, tripping and stumbling without subsequent striking against object, initial encounter; Y93.01 Activity, walking, marching and hiking; Y92.89 Other specified places as the place of occurrence of the external cause; Y99.9 Unspecified external cause status

== ENCOUNTER 2022-03-29 15:52 | Emergency (ER) | payer OTHER ==
[~2022-03-29] VITALS: Ht 162.5 cm; Wt 99.8 kg
[2022-03-29 16:00] VITALS: BP 143/98
[2022-03-29 16:51] LABS: BASO % 0.4 % (0.0-1.0); EOS % 0.4 % (1.0-4.0); HEMATOCRIT 43.5 % (37.0-47.0); LYMPH # 1.9 10*3/uL (1.3-4.4); LYMPH % 22.9 % (27.0-41.0); MEAN CORPUSCULAR HGB 31.5 pg (27.0-31.0); MEAN CORPUSCULAR HGB CONC 35.4 g/dl (33.0-37.0); MEAN PLATELET VOLUME 8.7 fl (9.6-12.3); MONO # 0.5 10*3/uL (0.1-1.0); MONO % 5.6 % (3.0-9.0); NEUT # 5.9 10*3/uL (2.3-7.9); NEUT % 70.5 % (47.0-73.0); PLATELET COUNT AUTOMATED 369 10*3/uL (130-400); RED BLOOD COUNT 4.89 10*6/uL (4.10-5.10); RED CELL DISTRI WIDTH 11.9 % (0-14.5); WHITE BLOOD COUNT 8.4 10*3/uL (4.8-10.8)
[2022-03-29 17:10] LABS: ALKALINE PHOSPHATASE 98 U/L (45-117); BUN 4 mg/dl (7-24); CHLORIDE 101 mmol/L (98-107); CREATININE 0.61 mg/dL (0.55-1.02); LIPASE 118 U/L (73-393); POTASSIUM 3.7 mmol/L (3.5-5.1); SGPT/ALT 32 U/L (12-78); SODIUM 134 mmol/L (136-145); TOTAL PROTEIN 7.7 gm/dL (6.4-8.2)
== END 2022-03-29 19:41 | disposition home or self-care (01) ==
LOC: ED 15:52
PROVIDERS: Physician Assistant
DX: R11.2 Nausea with vomiting, unspecified (principal); R10.13 Epigastric pain; Z79.899 Other long term (current) drug therapy; Z98.51 Tubal ligation status; Z98.890 Other specified postprocedural states

== ENCOUNTER → 2022-04-12 | Outpatient (CLI) | payer OTHER | END | disposition home or self-care (01) | LOC: US 00:20 | PROVIDERS: ATTEND Family Medicine | DX: R10.11 Right upper quadrant pain (principal); R11.0 Nausea ==

== ENCOUNTER → 2022-04-21 | Outpatient (CLI) | payer OTHER | END | disposition home or self-care (01) | LOC: NM 00:21 | PROVIDERS: ATTEND Family Medicine | DX: R10.811 Right upper quadrant abdominal tenderness (principal) ==

== ENCOUNTER → 2022-06-02 | Outpatient (CLI) | payer OTHER ==
[2022-06-02 12:43] LABS: HEMATOCRIT 43.5 % (37.0-47.0); MEAN CELL VOLUME 91.6 fl (81.0-99.0); MEAN CORPUSCULAR HGB 30.5 pg (27.0-31.0); MEAN CORPUSCULAR HGB CONC 33.3 g/dl (33.0-37.0); MEAN PLATELET VOLUME 8.7 fl (9.6-12.3); RED BLOOD COUNT 4.75 10*6/uL (4.10-5.10); RED CELL DISTRI WIDTH 12.6 % (0-14.5); WHITE BLOOD COUNT 8.4 10*3/uL (4.8-10.8)
[2022-06-02 13:01] LABS: ALKALINE PHOSPHATASE 94 U/L (46-116); BUN 7 mg/dl (9-23); CHLORIDE 99 mmol/L (98-107); FREE T4 1.27 ng/dl (0.89-1.76); POTASSIUM 4.2 mmol/L (3.4-5.1); SGPT/ALT 18 U/L (10-49); THYROID STIM HORMONE (HS) 0.916 uIU/ml (0.550-4.780); TOTAL PROTEIN 7.3 gm/dL (6.0-8.0)
== END | disposition home or self-care (01) ==
LOC: LAB 12:04
PROVIDERS: ATTEND Family Medicine
DX: Z13.220 Encounter for screening for lipoid disorders (principal); D36.7 Benign neoplasm of other specified sites; E03.9 Hypothyroidism, unspecified; E22.1 Hyperprolactinemia

== ENCOUNTER → 2022-06-08 | Outpatient (CLI) | payer OTHER | END | disposition home or self-care (01) | LOC: MRI 01:28 | PROVIDERS: ATTEND Family Medicine | DX: S02.31XA Fracture of orbital floor, right side, initial encounter for closed fracture (principal); G93.89 Other specified disorders of brain; I67.9 Cerebrovascular disease, unspecified; I67.82 Cerebral ischemia; D35.2 Benign neoplasm of pituitary gland; H53.9 Unspecified visual disturbance; G44.221 Chronic tension-type headache, intractable; X58.XXXA Exposure to other specified factors, initial encounter; Y93.89 Activity, other specified; Y92.89 Other specified places as the place of occurrence of the external cause; Y99.8 Other external cause status ==

== ENCOUNTER 2022-06-23 11:21 | Emergency (ER) | payer OTHER ==
[~2022-06-23] VITALS: Ht 162.5 cm; Wt 98.4 kg
[~2022-06-23 11:21] MED LIST changes: +LEVOTHYROXINE50 MCG PO; +LORAZEPAM1 MG PO; +METHOCARBAMOL750 M1 PO; +OXCARBAZEPINE150 MG PO; +OXCARBAZEPINE300 M1 PO; +TRINTELLIX20 MG PO
[2022-06-23 11:26] VITALS: BP 163/89
[2022-06-23 11:47] LABS: BASO # 0.1 10*3/uL (0.0-0.1); BASO % 0.6 % (0.0-1.0); EOS # 0.1 10*3/uL (0.0-0.4); EOS % 0.7 % (1.0-4.0); HEMATOCRIT 46.3 % (37.0-47.0); LYMPH # 1.7 10*3/uL (1.3-4.4); LYMPH % 19.1 % (27.0-41.0); MEAN CELL VOLUME 91.5 fl (81.0-99.0); MEAN CORPUSCULAR HGB CONC 33.9 g/dl (33.0-37.0); MEAN PLATELET VOLUME 8.7 fl (9.6-12.3); MONO # 0.3 10*3/uL (0.1-1.0); MONO % 3.8 % (3.0-9.0); NEUT # 6.8 10*3/uL (2.3-7.9); NEUT % 75.5 % (47.0-73.0); PLATELET COUNT AUTOMATED 473 10*3/uL (130-400); RED BLOOD COUNT 5.06 10*6/uL (4.10-5.10); RED CELL DISTRI WIDTH 12.5 % (0-14.5)
[2022-06-23 12:11] LABS: ALKALINE PHOSPHATASE 112 U/L (46-116); BUN 7 mg/dl (9-23); CHLORIDE 98 mmol/L (98-107); POTASSIUM 3.7 mmol/L (3.4-5.1); SGPT/ALT 27 U/L (10-49); TOTAL PROTEIN 7.5 gm/dL (6.0-8.0)
== END 2022-06-23 13:25 | disposition left against medical advice (07) ==
LOC: ED 11:21
PROVIDERS: Emergency Medicine
DX: R07.9 Chest pain, unspecified (principal); R42 Dizziness and giddiness; F17.200 Nicotine dependence, unspecified, uncomplicated; Z79.899 Other long term (current) drug therapy; Z98.51 Tubal ligation status; Z98.890 Other specified postprocedural states

== ENCOUNTER 2022-08-31 11:36 | Emergency (ER) | payer OTHER ==
[~2022-08-31] VITALS: Ht 162.5 cm; Wt 104.3 kg
[2022-08-31 12:51] VITALS: BP 136/69
[2022-08-31] MEDS ORDERED: AMOXICILLIN500 M2 PO (13:50)
[2022-08-31] MEDS ORDERED: IBUPROFEN600 MG PO (13:50)
== END 2022-08-31 14:00 | disposition home or self-care (01) ==
LOC: ED 11:36
DX: K08.89 Other specified disorders of teeth and supporting structures (principal); F41.9 Anxiety disorder, unspecified; F32.A Depression, unspecified; Z98.51 Tubal ligation status; Z98.890 Other specified postprocedural states; F17.200 Nicotine dependence, unspecified, uncomplicated

== ENCOUNTER 2022-10-10 08:46 | Emergency (ER) | payer OTHER ==
[~2022-10-10] VITALS: Ht 162.6 cm; Wt 102.1 kg
[~2022-10-10 08:46] MED LIST changes: +AMOXICILLIN500 M2 PO
[2022-10-10 08:53] VITALS: BP 133/75
[2022-10-10] MEDS ORDERED: CLONAZEPAM0.5 M2 PO (09:50)
[2022-10-10] MEDS ORDERED: DULOXETINE HCL60 MG PO (09:50)
[2022-10-10] MEDS ORDERED: IBU800 MG PO (10:51)
[2022-10-10] MEDS ORDERED: PREDNISONE50 MG PO (10:51)
== END 2022-10-10 10:56 | disposition home or self-care (01) ==
LOC: ED 08:46
DX: M79.661 Pain in right lower leg (principal); F41.9 Anxiety disorder, unspecified; F32.A Depression, unspecified; Z98.51 Tubal ligation status; Z98.890 Other specified postprocedural states; F17.200 Nicotine dependence, unspecified, uncomplicated

== ENCOUNTER 2022-10-27 08:16 | Emergency (ER) | payer OTHER ==
[~2022-10-27] VITALS: Ht 162.5 cm; Wt 102.1 kg
[~2022-10-27 08:16] MED LIST changes: +CLONAZEPAM0.5 M2 PO; +DULOXETINE HCL60 MG PO; +IBU800 MG PO; +PREDNISONE50 MG PO
[2022-10-27 08:38] VITALS: BP 143/88
[2022-10-27 09:13] LABS: BASO % 0.2 % (0.0-1.0); EOS % 0.1 % (1.0-4.0); HEMATOCRIT 50.8 % (37.0-47.0); LYMPH # 1.4 10*3/uL (1.3-4.4); LYMPH % 8.7 % (27.0-41.0); MEAN CELL VOLUME 90.9 fl (81.0-99.0); MEAN CORPUSCULAR HGB 30.1 pg (27.0-31.0); MEAN CORPUSCULAR HGB CONC 33.1 g/dl (33.0-37.0); MONO # 0.8 10*3/uL (0.1-1.0); MONO % 4.6 % (3.0-9.0); NEUT # 13.9 10*3/uL (2.3-7.9); NEUT % 85.9 % (47.0-73.0); PLATELET COUNT AUTOMATED 505 10*3/uL (130-400); RED BLOOD COUNT 5.59 10*6/uL (4.10-5.10); WHITE BLOOD COUNT 16.2 10*3/uL (4.8-10.8)
[2022-10-27 09:44] LABS: ALKALINE PHOSPHATASE 107 U/L (46-116); BUN 11 mg/dl (9-23); CHLORIDE 99 mmol/L (98-107); LIPASE 34 U/L (12-53); POTASSIUM 3.6 mmol/L (3.4-5.1); SGPT/ALT 41 U/L (10-49)
[2022-10-27 09:53] LABS: BETA-HCG, QUANT < 3.0 mIU/mL (3-10)
[2022-10-27] MEDS ORDERED: ONDANSETRON4 MG SL (11:48)
== END 2022-10-27 12:05 | disposition home or self-care (01) ==
LOC: ED 08:16
PROVIDERS: Emergency Medicine
DX: K52.9 Noninfective gastroenteritis and colitis, unspecified (principal); F41.9 Anxiety disorder, unspecified; F32.A Depression, unspecified; Z98.51 Tubal ligation status; Z98.890 Other specified postprocedural states; F17.200 Nicotine dependence, unspecified, uncomplicated

== ENCOUNTER → 2022-12-22 | Outpatient (CLI) | payer OTHER ==
[~2022-12-22] MED LIST changes: +ONDANSETRON4 MG SL
== END | disposition home or self-care (01) ==
LOC: US 15:52
PROVIDERS: ATTEND Internal Medicine
DX: R22.41 Localized swelling, mass and lump, right lower limb (principal)

== ENCOUNTER → 2022-12-23 | Outpatient (CLI) | payer OTHER ==
[2022-12-23 12:16] LABS: BASO % 0.3 % (0.0-1.0); EOS # 0.1 10*3/uL (0.0-0.4); EOS % 1.3 % (1.0-4.0); HEMATOCRIT 44.2 % (37.0-47.0); LYMPH # 1.5 10*3/uL (1.3-4.4); LYMPH % 21.8 % (27.0-41.0); MEAN CELL VOLUME 91.3 fl (81.0-99.0); MEAN CORPUSCULAR HGB 30.4 pg (27.0-31.0); MEAN CORPUSCULAR HGB CONC 33.3 g/dl (33.0-37.0); MEAN PLATELET VOLUME 8.8 fl (9.6-12.3); MONO # 0.5 10*3/uL (0.1-1.0); MONO % 6.8 % (3.0-9.0); NEUT # 4.8 10*3/uL (2.3-7.9); NEUT % 69.5 % (47.0-73.0); PLATELET COUNT AUTOMATED 347 10*3/uL (130-400); RED BLOOD COUNT 4.84 10*6/uL (4.10-5.10); RED CELL DISTRI WIDTH 12.5 % (0-14.5); WHITE BLOOD COUNT 6.9 10*3/uL (4.8-10.8)
[2022-12-23 12:43] LABS: VITAMIN D, 25-HYDROXY 25.7 ng/mL (30-100)
[2022-12-23 12:44] LABS: ALKALINE PHOSPHATASE 91 U/L (46-116); BUN 7 mg/dl (9-23); CHLORIDE 102 mmol/L (98-107); CHOLESTEROL 194 mg/dL (<200); FREE T4 0.71 ng/dl (0.89-1.76); LDL CHOLESTEROL 114 mg/dL (9-159); POTASSIUM 3.9 mmol/L (3.4-5.1); SGPT/ALT 20 U/L (10-49); TOTAL PROTEIN 6.7 gm/dL (6.0-8.0); TRIGLYCERIDES 145 mg/dl (<150); URIC ACID 4.5 mg/dL (3.1-7.8)
[2022-12-24 14:09] LABS: CCP ANTIBODIES IGG/IGA 5 units (0-19)
[2022-12-26 14:07] LABS: ANTI-DSDNA ANTIBODIES <1 IU/mL (0-9)
== END | disposition home or self-care (01) ==
LOC: LAB 11:55
PROVIDERS: ATTEND Internal Medicine
DX: Z00.00 Encounter for general adult medical examination without abnormal findings (principal)

== ENCOUNTER 2023-05-20 13:01 | Emergency (ER) | payer SELFPAY ==
[~2023-05-20] VITALS: Ht 162.5 cm; Wt 102.1 kg
[2023-05-20 13:26] VITALS: BP 122/78
[2023-05-20 13:58] LABS: BASO % 0.3 % (0.0-1.0); EOS # 0.1 10*3/uL (0.0-0.4); EOS % 1.6 % (1.0-4.0); HEMATOCRIT 45.5 % (37.0-47.0); LYMPH # 1.9 10*3/uL (1.3-4.4); LYMPH % 29.6 % (27.0-41.0); MEAN CELL VOLUME 93.6 fl (81.0-99.0); MEAN CORPUSCULAR HGB 30.2 pg (27.0-31.0); MEAN CORPUSCULAR HGB CONC 32.3 g/dl (33.0-37.0); MEAN PLATELET VOLUME 8.8 fl (9.6-12.3); MONO # 0.4 10*3/uL (0.1-1.0); MONO % 6.1 % (3.0-9.0); NEUT # 3.9 10*3/uL (2.3-7.9); PLATELET COUNT AUTOMATED 336 10*3/uL (130-400); RED BLOOD COUNT 4.86 10*6/uL (4.10-5.10); RED CELL DISTRI WIDTH 12.7 % (0-14.5); WHITE BLOOD COUNT 6.4 10*3/uL (4.8-10.8)
[2023-05-20 14:16] LABS: BILIRUBIN Negative (Negative); BLOOD 3+ (Negative); CLARITY Cloudy (Clear); COLOR Yellow (Yellow); GLUCOSE Negative (Negative); KETONE Negative (Negative); LEUKO ESTERASE 3+ (Negative); NITRITE Negative (Negative); SPECIFIC GRAVITY <= 1.005 (1.001-1.030); UROBILINOGEN 0.2 E.U./dl (0.0-1.0)
[2023-05-20 14:20] LABS: ALKALINE PHOSPHATASE 104 U/L (46-116); BUN 8 mg/dl (9-23); CHLORIDE 101 mmol/L (98-107); LIPASE 35 U/L (12-53); POTASSIUM 3.7 mmol/L (3.4-5.1); SGPT/ALT 24 U/L (5-49)
[2023-05-20 14:34] LABS: BACTERIA 3+
[2023-05-20 14:36] LABS: RBC 21-30 rbc/hpf (0-2); WBC 31-40 wbc/hpf (0-5)
[2023-05-20] MEDS ORDERED: TRAMADOL HCL50 MG PO (15:23)
[2023-05-20] MEDS ORDERED: SEPTDS PO ×2 (15:23→15:26)
== END 2023-05-20 15:16 | disposition home or self-care (01) ==
LOC: ED 13:01
PROVIDERS: Physician Assistant Medical
DX: N39.0 Urinary tract infection, site not specified (principal); N93.9 Abnormal uterine and vaginal bleeding, unspecified; F41.9 Anxiety disorder, unspecified; F32.A Depression, unspecified; Z98.51 Tubal ligation status; Z98.890 Other specified postprocedural states; F17.200 Nicotine dependence, unspecified, uncomplicated

== ENCOUNTER 2023-10-31 11:29 | Emergency (ER) | payer OTHER ==
[~2023-10-31] VITALS: Ht 162.5 cm; Wt 102.1 kg
[~2023-10-31 11:29] MED LIST changes: +TRAMADOL HCL50 MG PO
[2023-10-31 11:49] VITALS: BP 135/100
[2023-10-31] MEDS ORDERED: LEVOTHYROXINE100 MC1 PO (11:51)
[2023-10-31] MEDS ORDERED: CLONAZEPAM0.5 M2 PO (11:51)
== END 2023-10-31 12:15 | disposition left against medical advice (07) ==
LOC: ED 11:29
DX: K02.9 Dental caries, unspecified (principal); F17.200 Nicotine dependence, unspecified, uncomplicated; Z76.5 Malingerer [conscious simulation]; Z79.899 Other long term (current) drug therapy; Z98.890 Other specified postprocedural states; Z98.51 Tubal ligation status; Z53.29 Procedure and treatment not carried out because of patient's decision for other reasons

== ENCOUNTER → 2024-05-22 | Outpatient (CLI) | payer OTHER ==
[~2024-05-22] MED LIST changes: +LEVOTHYROXINE100 MC1 PO
[2024-05-22 11:59] LABS: BASO % 0.5 % (0.0-1.0); EOS # 0.1 10*3/uL (0.0-0.4); EOS % 1.5 % (1.0-4.0); HEMATOCRIT 45.8 % (37.0-47.0); MEAN CELL VOLUME 89.5 fl (81.0-99.0); MEAN CORPUSCULAR HGB 29.3 pg (27.0-31.0); MEAN CORPUSCULAR HGB CONC 32.8 g/dl (33.0-37.0); MEAN PLATELET VOLUME 8.7 fl (9.6-12.3); MONO # 0.4 10*3/uL (0.1-1.0); NEUT # 5.9 10*3/uL (2.3-7.9); NEUT % 66.6 % (47.0-73.0); PLATELET COUNT AUTOMATED 342 10*3/uL (130-400); RED BLOOD COUNT 5.12 10*6/uL (4.10-5.10); RED CELL DISTRI WIDTH 12.7 % (0-14.5); WHITE BLOOD COUNT 8.8 10*3/uL (4.8-10.8)
[2024-05-22 12:43] LABS: ALKALINE PHOSPHATASE 124 U/L (46-116); BUN 10 mg/dl (9-23); CHLORIDE 100 mmol/L (98-107); CHOLESTEROL 214 mg/dL (<200); LDL CHOLESTEROL 109 mg/dL (9-159); POTASSIUM 4.2 mmol/L (3.4-5.1); SGPT/ALT 19 U/L (5-49); TOTAL PROTEIN 7.2 gm/dL (6.0-8.0); TRIGLYCERIDES 225 mg/dl (<150)
[2024-05-22 12:47] LABS: VITAMIN D, 25-HYDROXY 17.6 ng/mL (30-100)
== END | disposition home or self-care (01) ==
LOC: LAB 11:13
PROVIDERS: Internal Medicine; ATTEND Nurse Practitioner Women's Health
DX: Z13.220 Encounter for screening for lipoid disorders (principal); Z13.1 Encounter for screening for diabetes mellitus; Z13.0 Encounter for screening for diseases of the blood and blood-forming organs and certain disorders involving the immune mechanism; Z13.21 Encounter for screening for nutritional disorder; Z13.228 Encounter for screening for other metabolic disorders; Z13.29 Encounter for screening for other suspected endocrine disorder; Z13.6 Encounter for screening for cardiovascular disorders; E03.9 Hypothyroidism, unspecified; J12.1 Respiratory syncytial virus pneumonia; E53.9 Vitamin B deficiency, unspecified; E55.9 Vitamin D deficiency, unspecified; N95.1 Menopausal and female climacteric states; R53.83 Other fatigue

== ENCOUNTER 2025-01-25 13:40 | Emergency (ER) | payer OTHER ==
[~2025-01-25] VITALS: Ht 162.5 cm; Wt 99.8 kg
[2025-01-25 13:46] VITALS: BP 153/75
[2025-01-25 13:59] LABS: BILIRUBIN Negative (Negative); BLOOD Negative (Negative); CLARITY Cloudy (Clear); COLOR Yellow (Yellow); KETONE Trace (Negative); LEUKO ESTERASE Negative (Negative); NITRITE Negative (Negative); PH 6.0 (4.5-8.0); SPECIFIC GRAVITY <= 1.005 (1.001-1.030); UROBILINOGEN 0.2 E.U./dl (0.0-1.0)
[2025-01-25] MEDS ORDERED: LORazepam 1 MG TAB PO ONE (14:00)
[2025-01-25 14:06] LABS: URINE AMPHETAMINES Positive (1000ng/ml); URINE BARBITURATES Negative (200ng/ml); URINE BENZODIAZEPINES Positive (200ng/ml); URINE CANNABINOIDS (THC) Positive (50ng/ml); URINE COCAINE Negative (300ng/ml); URINE METHADONE Positive (300ng/ml); URINE OPIATES Negative (300ng/ml); URINE PHENCYCLIDINE Negative (25ng/ml)
[2025-01-25 14:08] LABS: EPITHELIAL CELLS TNTC
[2025-01-25 14:09] LABS: BACTERIA 1+; WBC 0-2 wbc/hpf (0-5)
[2025-01-25 14:30] LABS: BASO # 0.1 10*3/uL (0.0-0.1); BASO % 0.5 % (0.0-1.0); EOS # 0.0 10*3/uL (0.0-0.4); EOS % 0.1 % (1.0-4.0); MEAN CELL VOLUME 87.1 fl (81.0-99.0); MEAN CORPUSCULAR HGB 29.8 pg (27.0-31.0); MEAN PLATELET VOLUME 9.3 fl (9.6-12.3); MONO # 0.4 10*3/uL (0.1-1.0); MONO % 4.0 % (3.0-9.0); NEUT # 8.4 10*3/uL (2.3-7.9); NEUT % 76.3 % (47.0-73.0); NUCLEATED RED BLOOD CELL 0.0 % (0.0-0.0); NUCLEATED RED BLOOD CELL 0.0 10*3/uL (0.0-0.0); PLATELET COUNT AUTOMATED 418 10*3/uL (130-400); RED CELL DISTRI WIDTH 12.5 % (0-14.5)
[2025-01-25 15:04] LABS: BUN 8 mg/dl (9-23); ETHYL ALCOHOL 22.5 mg/dl (<3)
== END 2025-01-25 18:19 ==
LOC: ED 13:40
PROVIDERS: Internal Medicine; Student in an Organized Health Care Education/Training Program
DX: R45.851 Suicidal ideations (principal); F11.20 Opioid dependence, uncomplicated; F41.9 Anxiety disorder, unspecified; F32.A Depression, unspecified; Z98.890 Other specified postprocedural states